=== PATIENT | female | born 1985 | race Caucasian/White ===

== ENCOUNTER 2019-06-18 04:45 | Emergency (ER) | payer OTHER ==
[~2019-06-18] VITALS: Ht 149.9 cm; Wt 81.6 kg
[2019-06-18] MEDS ORDERED: IV NORMAL SALINE 1000ML BAG 1,000 ML IV SCH (05:15)
--- NOTE | 2019-06-18 05:18 | PHYS DOC ---
Past Medical History Past Medical History: Anxiety, Depression, Kidney Stone (JASMYN PEACE DO) Past Surgical History: Tonsillectomy (JASMYN PEACE DO) Additional Information: Nonsmoker Alcohol Use: None Drug Use: None (JASMYN PEACE DO) Adult General Chief Complaint Chief Complaint: FLANK PAIN HPI HPI 33-year-old female presents to the emergency department with complaints of right flank pain. Patient was seen at urgent care on June 09 diagnosed with kidney stones. She states after couple days should been well however yesterday she had increasing pain with radiation around to her groin. She describes nausea. Denies any fever. Last menstrual. Approximately 3 weeks ago. She has underlying history of anxiety as well as depression. Nothing makes her symptoms worse, nothing makes her symptoms better. (RAYSA HAN MD) Review of Systems Review of Systems Constitutional: Denies fever or chills [] Respiratory: Denies cough or shortness of breath [] Cardiovascular: No additional information not addressed in HPI [] GI: Denies abdominal pain, + nausea, no vomiting, bloody stools or diarrhea [] : Denies dysuria or hematuria [] Musculoskeletal: right flank pain Neurologic: Denies headache, focal weakness or sensory changes [] All other systems were reviewed and found to be within normal limits, except as documented in this note. (RAYSA HAN MD) Current Medications Current Medications Current Medications Medications (Trade) Dose Ordered Sig/Diane Start Time Stop Time Status Last Admin Dose Admin Ketorolac Tromethamine (Toradol 30mg Vial) 30 mg 1X ONCE 06/18/19 05:30 06/18/19 05:31 DC 06/18/19 05:44 30 MG Oxycodone/ Acetaminophen (Percocet 5/325) 1 tab 1X ONCE 06/18/19 07:00 06/18/19 07:01 Sodium Chloride 1,000 ml @ 1,000 mls/hr Q1H 06/18/19 05:15 06/18/19 06:14 DC 06/18/19 05:15 1,000 MLS/HR (JASMYN PEACE DO) Allergies Allergies Allergies Coded Allergies Type Severity Reaction Last Updated Verified ketamine Allergy Unknown "resp failure" 06/18/19 Yes nitrous oxide Allergy Unknown "resp distress" 06/18/19 Yes (JASMYN PEACE DO) Physical Exam Physical Exam Constitutional: Well developed, well nourished, mild distress, non-toxic appearance. [] Eyes: PERRLA, EOMI, conjunctiva normal, no discharge. [] Cardiovascular:Heart rate regular rhythm, no murmur [] Lungs & Thorax: Bilateral breath sounds clear to auscultation [] Abdomen: Bowel sounds normal, soft, no tenderness, no masses, no pulsatile masses. [] Skin: Warm, dry, no erythema, no rash. [] Back: No tenderness, no CVA tenderness. [] Extremities: No tenderness, no edema. [] Neurologic: Alert and oriented X 3, no focal deficits noted. [] Psychologic: Affect normal, judgement normal, mood normal. [] (RAYSA HAN MD) Physical Exam Constitutional: Well developed, well nourished, no acute distress, non-toxic appearance HENT: Normocephalic, atraumatic, oropharynx moist Eyes: PERRL, EOMI, conjunctiva normal, no discharge Neck: Normal range of motion, no tenderness, supple Cardiovascular: Heart rate normal, regular rhythm Lungs & Thorax: Bilateral breath sounds clear to auscultation, no wheezing Abdomen: Soft, no tenderness Skin: Warm, dry, no erythema, no rash Extremities: No tenderness, ROM intact, no edema Neurologic: Alert and oriented X 3, no focal deficits noted Psychologic: Affect normal, judgement normal (JASMYN PEACE DO) Current Patient Data Vital Signs Vital Signs Date Time Temp Pulse Resp B/P (MAP) Pulse Ox O2 Delivery O2 Flow Rate FiO2 06/18/19 06:43 70 16 135/60 (85) 99 Room Air 06/18/19 04:58 97.8 97.8 (JASMYN PEACE DO) Lab Values Laboratory Tests Test 06/18/19 05:05 06/18/19 05:11 06/18/19 05:15 Urine Collection Type Void Urine Color Yellow Urine Clarity Hazy Urine pH 5.5 Urine Specific River >=1.030 Urine Protein 30 mg/dL (NEG-TRACE) Urine Glucose (UA) Negative mg/dL (NEG) Urine Ketones (Stick) Negative mg/dL (NEG) Urine Blood Large (NEG) Urine Nitrite Negative (NEG) Urine Bilirubin Negative (NEG) Urine Urobilinogen Dipstick 0.2 mg/dL (0.2 mg/dL) Urine Leukocyte Esterase Negative (NEG) Urine RBC >40 /HPF (0-2) Urine WBC 1-4 /HPF (0-4) Urine Squamous Epithelial Cells Mod /LPF Urine Bacteria Few /HPF (0-FEW) Urine Mucus Mod /LPF POC Urine HCG, Qualitative Hcg negative (Negative) White Blood Count 12.0 x10^3/uL (4.0-11.0) H Red Blood Count 4.42 x10^6/uL (3.50-5.40) Hemoglobin 11.9 g/dL (12.0-15.5) L Hematocrit 36.7 % (36.0-47.0) Mean Corpuscular Volume 83 fL (79-100) Mean Corpuscular Hemoglobin 27 pg (25-35) Mean Corpuscular Hemoglobin Concent 32 g/dL (31-37) Red Cell Distribution Width 15.3 % (11.5-14.5) H Platelet Count 430 x10^3/uL (140-400) H Neutrophils (%) (Auto) 66 % (31-73) Lymphocytes (%) (Auto) 22 % (24-48) L Monocytes (%) (Auto) 9 % (0-9) Eosinophils (%) (Auto) 2 % (0-3) Basophils (%) (Auto) 1 % (0-3) Neutrophils # (Auto) 7.9 x10^3/uL (1.8-7.7) H Lymphocytes # (Auto) 2.6 x10^3/uL (1.0-4.8) Monocytes # (Auto) 1.1 x10^3/uL (0.0-1.1) Eosinophils # (Auto) 0.3 x10^3/uL (0.0-0.7) Basophils # (Auto) 0.1 x10^3/uL (0.0-0.2) Sodium Level 135 mmol/L (136-145) L Potassium Level 4.2 mmol/L (3.5-5.1) Chloride Level 102 mmol/L (98-107) Carbon Dioxide Level 24 mmol/L (21-32) Anion Gap 9 (6-14) Blood Urea Nitrogen 13 mg/dL (7-20) Creatinine 0.9 mg/dL (0.6-1.0) Estimated GFR (Cockcroft-Gault) 73.0 BUN/Creatinine Ratio 14 (6-20) Glucose Level 104 mg/dL (70-99) H Calcium Level 8.7 mg/dL (8.5-10.1) Total Bilirubin 0.2 mg/dL (0.2-1.0) Aspartate Amino Transferase (AST) 17 U/L (15-37) Alanine Aminotransferase (ALT) 12 U/L (14-59) L Alkaline Phosphatase 65 U/L (46-116) Total Protein 8.0 g/dL (6.4-8.2) Albumin 3.4 g/dL (3.4-5.0) Albumin/Globulin Ratio 0.7 (1.0-1.7) L Laboratory Tests 06/18/19 05:15 Laboratory Tests 06/18/19 05:15 (JASMYN PEACE DO) Lab Values Laboratory Tests Test 06/18/19 05:05 06/18/19 05:11 06/18/19 05:15 Urine Collection Type Void Urine Color Yellow Urine Clarity Hazy Urine pH 5.5 Urine Specific River >=1.030 Urine Protein 30 mg/dL (NEG-TRACE) Urine Glucose (UA) Negative mg/dL (NEG) Urine Ketones (Stick) Negative mg/dL (NEG) Urine Blood Large (NEG) Urine Nitrite Negative (NEG) Urine Bilirubin Negative (NEG) Urine Urobilinogen Dipstick 0.2 mg/dL (0.2 mg/dL) Urine Leukocyte Esterase Negative (NEG) Urine RBC >40 /HPF (0-2) Urine WBC 1-4 /HPF (0-4) Urine Squamous Epithelial Cells Mod /LPF Urine Bacteria Few /HPF (0-FEW) Urine Mucus Mod /LPF POC Urine HCG, Qualitative Hcg negative (Negative) White Blood Count 12.0 x10^3/uL (4.0-11.0) H Red Blood Count 4.42 x10^6/uL (3.50-5.40) Hemoglobin 11.9 g/dL (12.0-15.5) L Hematocrit 36.7 % (36.0-47.0) Mean Corpuscular Volume 83 fL (79-100) Mean Corpuscular Hemoglobin 27 pg (25-35) Mean Corpuscular Hemoglobin Concent 32 g/dL (31-37) Red Cell Distribution Width 15.3 % (11.5-14.5) H Platelet Count 430 x10^3/uL (140-400) H Neutrophils (%) (Auto) 66 % (31-73) Lymphocytes (%) (Auto) 22 % (24-48) L Monocytes (%) (Auto) 9 % (0-9) Eosinophils (%) (Auto) 2 % (0-3) Basophils (%) (Auto) 1 % (0-3) Neutrophils # (Auto) 7.9 x10^3/uL (1.8-7.7) H Lymphocytes # (Auto) 2.6 x10^3/uL (1.0-4.8) Monocytes # (Auto) 1.1 x10^3/uL (0.0-1.1) Eosinophils # (Auto) 0.3 x10^3/uL (0.0-0.7) Basophils # (Auto) 0.1 x10^3/uL (0.0-0.2) Sodium Level 135 mmol/L (136-145) L Potassium Level 4.2 mmol/L (3.5-5.1) Chloride Level 102 mmol/L (98-107) Carbon Dioxide Level 24 mmol/L (21-32) Anion Gap 9 (6-14) Blood Urea Nitrogen 13 mg/dL (7-20) Creatinine 0.9 mg/dL (0.6-1.0) Estimated GFR (Cockcroft-Gault) 73.0 BUN/Creatinine Ratio 14 (6-20) Glucose Level 104 mg/dL (70-99) H Calcium Level 8.7 mg/dL (8.5-10.1) Total Bilirubin 0.2 mg/dL (0.2-1.0) Aspartate Amino Transferase (AST) 17 U/L (15-37) Alanine Aminotransferase (ALT) 12 U/L (14-59) L Alkaline Phosphatase 65 U/L (46-116) Total Protein 8.0 g/dL (6.4-8.2) Albumin 3.4 g/dL (3.4-5.0) Albumin/Globulin Ratio 0.7 (1.0-1.7) L Laboratory Tests 06/18/19 05:15 Laboratory Tests 06/18/19 05:15 (RAYSA HAN MD) EKG EKG [] (RAYSA HAN MD) Radiology/Procedures Radiology/Procedures [] (RAYSA HAN MD) Radiology/Procedures PROCEDURE: CT ABDOMEN PELVIS WO CONTRAST Exam: CT of abdomen and pelvis without contrast INDICATION: Right flank pain TECHNIQUE: Sequential axial images through the abdomen and pelvis obtained without IV contrast. Sagittal and coronal reformatted images were reconstructed from the axial data and reviewed. Comparisons: None FINDINGS: Heart size is normal. No pericardial effusion. Visualized lung bases are clear. No pleural effusion. Evaluation of the solid organs is limited secondary to noncontrast technique Liver, spleen, pancreas and adrenals are unremarkable. Gallbladder is absent. There is moderate right-sided hydronephrosis with a 5 mm calculus at the right ureterovesicular junction. No other ureteral calculi are identified. There is a nonobstructing 4 mm calculus at the lower pole of the left kidney. Bladder is decompressed not well evaluated. Uterus is nonenlarged. No abnormal adnexal mass. Large and small bowel are unremarkable. Appendix is normal. No free intra-abdominal air or fluid. No obstruction. Abdominal aorta has a normal course and caliber. No enlarged intra-abdominal lymph nodes are identified. No suspicious osseous lesions or acute fractures. IMPRESSION: 1. A 5 mm calculus at the right ureterovesicular junction with moderate right-sided hydronephrosis. 2. Nonobstructing renal calculus the left kidney. (JASMYN PEACE DO) Course & Med Decision Making Course & Med Decision Making Pertinent Labs and Imaging studies reviewed. (See chart for details) [] 33-year-old female presents to the emergency department with complaints of right flank pain. Patient was seen at urgent care on June 09 diagnosed with kidney stones. She states after couple days should been well however yesterday she had increasing pain with radiation around to her groin. She describes nausea. Denies any fever. Last menstrual. Approximately 3 weeks ago. She has underlying history of anxiety as well as depression. Nothing makes her symptoms worse, nothing makes her symptoms better. IVF, Toradol 30mg IV/Zofran 4mg IV Urine - negative CT pending Care transferred to Dr. Peace 0600 (RAYSA HAN MD) Course & Med Decision Making 0600- Sign out received from Dr. Han for patient with concern for obstructing ureteral calculi. Labs reviewed. UA with microscopic hematuria w ithout signs of infection. BUN/Creat stable. Patient seen and evaluated by myself. Patient reports pain improved but still slightly present. CT abd/pelvis pending at time of sign out. CT resulted with 5mm obstructing stone to UVJ with moderate hydronephrosis. Pain addressed. Patient stable for discharge with outpatient follow-up with PCP/Urologist. Discussed findings and plan with patient and family, who acknowledge understanding and agreement. (JASMYN PEACE DO) Dragon Disclaimer Dragon Disclaimer This electronic medical record was generated, in whole or in part, using a voice recognition dictation system. (RAYSA HAN MD) Departure Departure Impression: Primary Impression: Kidney stone Disposition: HOME, SELF-CARE Condition: STABLE Patient Instructions: Diet for Kidney Stones, Kidney Stones, [id number] Scripts Oxycodone/Apap 5-325 (PERCOCET 5-325 MG TABLET ) 1 Each Tablet 0.5-1 TAB PO PRN Q6HRS PRN for PAIN, #10 TAB 0 Refills Prov: JASMYN PEACE DO 06/18/19 Ibuprofen (IBUPROFEN) 400 Mg Tablet 400 MG PO TID PRN PRN for PAIN, #30 TAB Prov: JASMYN PEACE DO 06/18/19 RAYSA HAN MD Jun 18, 2019 05:18 JASMYN PEACE DO Jun 18, 2019 06:23
[2019-06-18 05:19] LABS: BILIRUBIN,URINE NEGATIVE (NEG); COLOR,URINE YELLOW; NITRITE,URINE NEGATIVE (NEG); PH,URINE 5.5; PROTEIN,URINE 30 mg/dL (NEG-TRACE); UROBILINOGEN,URINE 0.2 mg/dL (0.2 mg/dL)
[2019-06-18 05:26] LABS: CLARITY,URINE HAZY; SQUAMOUS EPITHELIAL CELL,UR MOD /LPF
[2019-06-18 05:27] LABS: RBC,URINE >40 /HPF (0-2)
[2019-06-18 05:27] LABS: BASO # 0.1 x10^3/uL (0.0-0.2); BASO % 1 % (0-3); EOS # 0.3 x10^3/uL (0.0-0.7); EOS % 2 % (0-3); HEMATOCRIT 36.7 % (36.0-47.0); HEMOGLOBIN 11.9 g/dL (12.0-15.5); LYMPH # 2.6 x10^3/uL (1.0-4.8); LYMPH % 22 % (24-48); MEAN CORPUSCULAR HEMOGLOBIN 27 pg (25-35); MEAN CORPUSCULAR HGB CONC 32 g/dL (31-37); MEAN CORPUSCULAR VOLUME 83 fL (79-100); MONO # 1.1 x10^3/uL (0.0-1.1); MONO % 9 % (0-9); NEUT # 7.9 x10^3/uL (1.8-7.7); NEUT % 66 % (31-73); PLATELET COUNT 430 x10^3/uL (140-400); RED BLOOD COUNT 4.42 x10^6/uL (3.50-5.40); RED CELL DISTRIBUTION WIDTH 15.3 % (11.5-14.5)
[2019-06-18 05:28] LABS: BACTERIA,URINE FEW /HPF (0-FEW)
[2019-06-18] MEDS ORDERED: KETOROLAC 30 MG/ML VIAL. IVP ONE (05:30)
[2019-06-18 05:41] LABS: CALCIUM 8.7 mg/dL (8.5-10.1); CREATININE 0.9 mg/dL (0.6-1.0); POTASSIUM 4.2 mmol/L (3.5-5.1)
[2019-06-18 05:46] LABS: ALBUMIN 3.4 g/dL (3.4-5.0); ALBUMIN/GLOBULIN RATIO 0.7 (1.0-1.7); TOTAL BILIRUBIN 0.2 mg/dL (0.2-1.0)
--- NOTE | 2019-06-18 06:05 | RAD ---
Exam: CT of abdomen and pelvis without contrast INDICATION: Right flank pain TECHNIQUE: Sequential axial images through the abdomen and pelvis obtained without IV contrast. Sagittal and coronal reformatted images were reconstructed from the axial data and reviewed. Comparisons: None FINDINGS: Heart size is normal. No pericardial effusion. Visualized lung bases are clear. No pleural effusion. Evaluation of the solid organs is limited secondary to noncontrast technique Liver, spleen, pancreas and adrenals are unremarkable. Gallbladder is absent. There is moderate right-sided hydronephrosis with a 5 mm calculus at the right ureterovesicular junction. No other ureteral calculi are identified. There is a nonobstructing 4 mm calculus at the lower pole of the left kidney. Bladder is decompressed not well evaluated. Uterus is nonenlarged. No abnormal adnexal mass. Large and small bowel are unremarkable. Appendix is normal. No free intra-abdominal air or fluid. No obstruction. Abdominal aorta has a normal course and caliber. No enlarged intra-abdominal lymph nodes are identified. No suspicious osseous lesions or acute fractures. IMPRESSION: 1. A 5 mm calculus at the right ureterovesicular junction with moderate right-sided hydronephrosis. 2. Nonobstructing renal calculus the left kidney. Exposure: One or more of the following in the visualized dose reduction techniques were utilized for this examination: 1. Automated exposure control 2. Adjustment of the MA and/or KV according to patient size 3. Use of iterative of reconstructive technique Electronically signed by: Seun Robbins MD (06/18/2019 6:02 AM) [id number]
[2019-06-18 06:43] VITALS: BP 135/60
[2019-06-18] MEDS ORDERED: IBUP-1027 PO (06:45)
[2019-06-18] MEDS ORDERED: OXYC1TAB15 PO (06:45)
[2019-06-18] MEDS ORDERED: oxyCODONE/APAP 5/325 1 TAB TABLET PO ONE (07:00)
== END 2019-06-18 07:12 | disposition home or self-care (01) ==
LOC: ER 04:45
DX: N20.0 Calculus of kidney (principal); Z88.4 Allergy status to anesthetic agent; Z88.8 Allergy status to other drugs, medicaments and biological substances
CPT/HCPCS: 36415; 74176; 80053; 81001; 81025; 85025; 96374; 99285; J1885; J7030